=== PATIENT | female | born 1975 | race Caucasian/White ===

== ENCOUNTER 2019-05-09 08:00 | Inpatient (IN) ==
[2019-05-09] MEDS ORDERED: Lidocaine 1% 20 ML MDV ID PRN (08:33)
[2019-05-09] MEDS ORDERED: Naloxone 0.4 MG/ML INJ IVP PRN ×2 (08:33→16:55)
[2019-05-09] MEDS ORDERED: Famotidine 20 MG/2 ML VIAL IVP PRN (08:33)
[2019-05-09] MEDS ORDERED: Metoclopramide 10 MG/2 ML VIAL IVP PRN ×2 (08:33→16:55)
[2019-05-09] MEDS ORDERED: Ondansetron 4 MG/2 ML VIAL IVP PRN ×2 (08:33→16:55)
[2019-05-09] MEDS ORDERED: *HR* Nalbuphine 10 MG/ML AMPUL IVP PRN (08:33)
[2019-05-09] MEDS ORDERED: FLU Vac QV 19-20 (6Month+)/PF 0.5 ML SYRINGE IM ONE (08:41)
[2019-05-09 08:44] LABS: Basophils # 0.1 K/mcL (0.0-0.2); Basophils % 0.4 %; Eosinophils # 0.4 K/mcL (0.0-0.6); Eosinophils % 2.8 %; Hematocrit 36.2 % (35.3-44.9); Hemoglobin 12.7 g/dL (11.5-15.4); Immature Granulocytes % 0.4 % (0-4); Lymphocytes # 2.5 K/mcL (0.6-4.6); Lymphocytes % 18.5 %; Mean Corpuscular HGB Conc 35.1 g/dL (31.6-35.5); Mean Corpuscular Volume 88.3 fL (83.0-100.0); Monocytes # 0.9 K/mcL (0.0-1.3); Monocytes % 6.7 %; Neutrophils # 9.7 K/mcL (1.6-8.9); Platelet Count 404 K/mcL (140-400); Red Cell Distribution Width 13.2 % (11.5-14.5); Segmented Neutrophils % 71.2 %; White Blood Count 13.7 K/mcL (4.3-11.1)
[2019-05-09 08:54] LABS: Amphetamine Screen,Urine Negative ng/mL (Cutoff=1000); Barbiturate Screen,Urine Negative ng/mL (Cutoff=200); Benzodiazepines Screen,Urine Negative ng/mL (Cutoff=200); Cannabinoid Screen,Urine Negative ng/mL (Cutoff = 50); Cocaine Screen,Urine Negative ng/mL (Cutoff= 300); Opiate Screen,Urine Negative ng/mL (Cutoff=300); Phencyclidine Screen,Urine Negative ng/mL (Cutoff=25)
[2019-05-09] MEDS ORDERED: Oxytocin 20 units/ LR 1000 mL 20 UNIT/1,000 ML BAG IVC SCH ×2 (09:45→16:55)
[2019-05-09] MEDS ORDERED: Acetaminophen IV 1,000 MG/100 ML INFUS..BTL IVPB ONE (10:24)
[2019-05-09] MEDS ORDERED: *HR* Promethazine 25 MG/ML VIAL IVP PRN (10:24)
[2019-05-09] MEDS ORDERED: Ondansetron 4 MG/2 ML VIAL ONE (10:40)
[2019-05-09] MEDS ORDERED: Dexamethasone 4 MG/ML VIAL ONE (10:40)
[2019-05-09] MEDS ORDERED: *HR* Phenylephrine 10 MG/ML VIAL ONE (10:41)
[2019-05-09] MEDS ORDERED: *HR* Oxytocin 10 UNIT/ML VIAL IM ONE (10:41)
[2019-05-09] MEDS ORDERED: EPHEDrine 50 MG/ML VIAL ONE (10:41)
[2019-05-09] MEDS ORDERED: *HR* Morphine Sulfate/PF 10 MG/10 ML AMPUL ONE (10:42)
[2019-05-09] MEDS ORDERED: *HR* FentaNYL (PF) 100 MCG/2 ML VIAL ONE (10:42)
[2019-05-09] MEDS ORDERED: Ringers Solution, Lactated 1,000 ML ONE (10:44)
[2019-05-09] MEDS ORDERED: *HR* Midazolam HCl 2 MG/2 ML VIAL ONE (10:50)
[2019-05-09] MEDS: Ringers Solution, Lactated 1,000 ML IVC SCH ×2 (11:25→11:29)
[2019-05-09] MEDS ORDERED: Ringers Solution, Lactated 1,000 ML IVC SCH (16:55)
[2019-05-09] MEDS ORDERED: Sennosides 8.6 MG TABLET PO PRN (16:55)
[2019-05-09] MEDS ORDERED: Simethicone 80 MG TAB.CHEW PO PRN (16:55)
[2019-05-09] MEDS ORDERED: *HR* HYDROMORPHONE 2 MG/ML VIAL ONE (17:05)
[2019-05-09] MEDS: *HR* OxyCODONE/APAP 5/325 TABLET PO PRN (17:17)
[2019-05-09] MEDS: *HR* Metformin 500 MG TABLET PO SCH (20:56)
[2019-05-09] MEDS: Ibuprofen 600 MG TABLET PO PRN (20:57)
[2019-05-10 06:40] LABS: Basophils % 0.2 %; Eosinophils # 0.2 K/mcL (0.0-0.6); Eosinophils % 1.1 %; Hematocrit 32.8 % (35.3-44.9); Hemoglobin 11.2 g/dL (11.5-15.4); Immature Granulocytes % 0.5 % (0-4); Lymphocytes % 11.3 %; Mean Corpuscular HGB Conc 34.1 g/dL (31.6-35.5); Mean Corpuscular Hemoglobin 30.4 pg (28.0-33.3); Mean Corpuscular Volume 89.1 fL (83.0-100.0); Mean Platelet Volume 9.7 fL (9.4-12.4); Monocytes # 1.5 K/mcL (0.0-1.3); Monocytes % 8.6 %; Neutrophils # 13.6 K/mcL (1.6-8.9); Platelet Count 347 K/mcL (140-400); Red Blood Count 3.68 M/mcL (3.82-4.97); Red Cell Distribution Width 13.2 % (11.5-14.5); Segmented Neutrophils % 78.3 %; White Blood Count 17.4 K/mcL (4.3-11.1)
[2019-05-10] MEDS: Ibuprofen 600 MG TABLET PO PRN ×2 (06:58→18:47)
[2019-05-10] MEDS: *HR* Metformin 500 MG TABLET PO SCH ×2 (08:58→16:54)
[2019-05-10] MEDS ORDERED: Prenatal Vit/FA 1 EACH TABLET PO SCH (09:00)
[2019-05-10] MEDS: *HR* OxyCODONE/APAP 5/325 TABLET PO PRN (13:12)
[2019-05-10] MEDS ORDERED: FLU Vac QV 19-20 (6Month+)/PF 0.5 ML SYRINGE IM ONE (20:21)
[2019-05-10 21:02] VITALS: BP 130/85
== END 2019-05-10 21:15 | disposition home or self-care (01) | DRG 540 ==
LOC: 1NENULAB 08:04 → 1NENUPED 15:51 → 1NENUOBS 16:28
PROVIDERS: ADMIT Obstetrics & Gynecology; ATTEND Obstetrics & Gynecology

== ENCOUNTER 2019-08-14 17:51 | Observation (INO) ==
[2019-08-14] MEDS ORDERED: 0.9 % Sodium Chloride 1,000 ML IVC ONE ×2 (18:00→21:44)
[2019-08-14 18:21] LABS: Basophils % 0.5 %; Eosinophils # 0.3 K/mcL (0.0-0.6); Eosinophils % 3.7 %; Hematocrit 41.2 % (35.3-44.9); Immature Granulocytes % 0.5 % (0-4); Lymphocytes # 1.2 K/mcL (0.6-4.6); Lymphocytes % 14.6 %; Mean Corpuscular Hemoglobin 29.1 pg (28.0-33.3); Mean Corpuscular Volume 85.7 fL (83.0-100.0); Mean Platelet Volume 9.1 fL (9.4-12.4); Monocytes # 0.7 K/mcL (0.0-1.3); Monocytes % 8.7 %; Neutrophils # 5.8 K/mcL (1.6-8.9); Platelet Count 309 K/mcL (140-400); Red Blood Count 4.81 M/mcL (3.82-4.97); Red Cell Distribution Width 13.5 % (11.5-14.5); White Blood Count 8.1 K/mcL (4.3-11.1)
[2019-08-14 18:30] LABS: Activated Partial Thrombo Time 34.8 Seconds (26.0-36.0)
[2019-08-14 18:37] LABS: Bilirubin,Urine Small (Negative); Blood,Urine Negative (Negative); Clarity,Urine Cloudy (Clear); Color,Urine Dark Yellow (Yellow); Glucose,Urine (UA) Normal (Normal); Ketones,Urine Negative (Negative); Leukocyte Esterase,Urine Negative (Negative); Nitrite,Urine Negative (Negative); Protein,Urine Negative (Neg-Trace); Specific Gravity,Urine 1.019 (1.010-1.025); Urobilinogen,Urine Normal (Normal)
[2019-08-14 18:39] LABS: Bacteria,Urine None Seen per hpf (None-Few); Hyaline Casts,Urine None Seen per lpf (None-Few); RBC,Urine 0-3 per hpf (0-3); Squamous Epithelial Cell,Urine Many per lpf (None-Few); WBC,Urine 0-3 per hpf (0-3)
[2019-08-14 19:01] LABS: Alanine Aminotransferase 521 Units/L (7-52); Albumin 4.3 g/dL (3.5-5.7); Albumin/Globulin Ratio 1.3 (1.1-2.2); Alkaline Phosphatase 174 Units/L (34-104); Amylase 537 Units/L (29-103); Aspartate Amino Transferase 497 Units/L (13-39); BUN/Creatinine Ratio 17 (6-26); Bilirubin,Direct 0.7 mg/dL (0.0-0.2); Bilirubin,Indirect 0.4 mg/dL (0.0-1.0); Bilirubin,Total 1.1 mg/dL (0.3-1.0); Blood Urea Nitrogen 12 mg/dL (6-20); Calcium 9.7 mg/dL (8.6-10.3); Carbon Dioxide 27 mEq/L (23-29); Chloride 102 mEq/L (98-107); Globulin 3.3 g/dL (2.4-3.5); Glucose 145 mg/dL (70-105); Lipase > 1800 Units/L (11-82); Osmolality,Calculated 284 (280-300); Potassium 4.3 mEq/L (3.5-5.1); Sodium 136 mEq/L (136-145); Total Protein 7.6 g/dL (6.4-8.9); Troponin I < 0.03 ng/mL (< 0.04); eGFR For African Americans > 60 (> 60); eGFR For Non-African Americans > 60 (> 60)
[2019-08-14] MEDS ORDERED: *HR* FentaNYL (PF) 100 MCG/2 ML VIAL IVP ONE (20:23)
[2019-08-14] MEDS ORDERED: Isovue-370 500 ML BOTTLE IVP ONE (21:43)
[2019-08-14] MEDS ORDERED: Nicotine 14 MG PATCH.TD24 TD ONE (22:25)
[2019-08-15] MEDS ORDERED: Ondansetron 4 MG/2 ML VIAL IVP PRN (01:47)
[2019-08-15] MEDS ORDERED: Naloxone 0.4 MG/ML INJ IVP PRN (01:47)
[2019-08-15] MEDS ORDERED: Morphine Sulfate 2 MG/ML SYRINGE IVP PRN (01:53)
[2019-08-15] MEDS: 0.9 % Sodium Chloride 1,000 ML IVC SCH ×4 (02:31→20:35)
[2019-08-15] MEDS: Ringers Solution, Lactated 1,000 ML IVC SCH ×4 (04:15→12:57)
[2019-08-15 04:32] LABS: Basophils % 0.8 %; Eosinophils # 0.2 K/mcL (0.0-0.6); Eosinophils % 4.4 %; Hemoglobin 12.5 g/dL (11.5-15.4); Immature Granulocytes % 0.2 % (0-4); Lymphocytes % 19.8 %; Mean Corpuscular HGB Conc 33.8 g/dL (31.6-35.5); Mean Corpuscular Hemoglobin 29.8 pg (28.0-33.3); Mean Corpuscular Volume 88.1 fL (83.0-100.0); Mean Platelet Volume 9.5 fL (9.4-12.4); Monocytes # 0.5 K/mcL (0.0-1.3); Monocytes % 9.7 %; Neutrophils # 3.4 K/mcL (1.6-8.9); Platelet Count 263 K/mcL (140-400); Red Cell Distribution Width 13.6 % (11.5-14.5); Segmented Neutrophils % 65.1 %; White Blood Count 5.3 K/mcL (4.3-11.1)
[2019-08-15 04:33] LABS: Prothrombin Time 11.6 Seconds (9.4-12.1)
[2019-08-15 05:14] LABS: Alanine Aminotransferase 966 Units/L (7-52); Albumin 3.9 g/dL (3.5-5.7); Albumin/Globulin Ratio 1.4 (1.1-2.2); Alkaline Phosphatase 198 Units/L (34-104); Aspartate Amino Transferase 846 Units/L (13-39); BUN/Creatinine Ratio 15 (6-26); Bilirubin,Total 1.6 mg/dL (0.3-1.0); Blood Urea Nitrogen 8 mg/dL (6-20); Calcium 8.9 mg/dL (8.6-10.3); Carbon Dioxide 24 mEq/L (23-29); Chloride 106 mEq/L (98-107); Chol/HDL Ratio 5.2 (0-4.9); Cholesterol 198 mg/dL (< 200); Globulin 2.7 g/dL (2.4-3.5); Glucose 97 mg/dL (70-105); HDL Cholesterol 38 mg/dL (40-59); LDL Cholesterol,Calculated 118 mg/dL (0-99); Magnesium 1.8 mg/dL (1.6-2.6); Osmolality,Calculated 284 (280-300); Potassium 3.8 mEq/L (3.5-5.1); Sodium 138 mEq/L (136-145); Total Protein 6.6 g/dL (6.4-8.9); Triglycerides 209 mg/dL (< 150); eGFR For African Americans > 60 (> 60); eGFR For Non-African Americans > 60 (> 60)
[2019-08-15 05:42] LABS: Hepatitis B Surface Antigen Nonreactive (Nonreactive)
[2019-08-15 06:11] LABS: Hepatitis C Virus Antibody Nonreactive (Nonreactive)
[2019-08-15 06:12] LABS: Hepatitis B Core IgM Nonreactive (Nonreactive)
[2019-08-15 06:13] LABS: Hepatitis A Antibody IgM Nonreactive (Nonreactive)
[2019-08-15] MEDS: *HR* Heparin 5,000 UNIT/ML VIAL SQ SCH ×3 (06:21→21:10)
[2019-08-15] MEDS ORDERED: Piperacillin/Tazobactam 3.375 GM in 0.9 % Sodium Chloride Mini Bag 100 ML IVPB SCH (11:00)
[2019-08-15] MEDS: Piperacillin/Tazobactam 3.375 GM in 0.9 % Sodium Chloride Mini Bag 100 ML IVPB SCH ×2 (11:56→21:10)
[2019-08-15] MEDS ORDERED: 0.9 % Sodium Chloride 1,000 ML IVC SCH (16:15)
[2019-08-15] MEDS ORDERED: Ibuprofen 600 MG TABLET PO ONE (20:49)
[2019-08-15] MEDS ORDERED: Nicotine 14 MG PATCH.TD24 TD SCH (22:30)
[2019-08-16] MEDS: 0.9 % Sodium Chloride 1,000 ML IVC SCH ×4 (00:45→20:19)
[2019-08-16] MEDS: Piperacillin/Tazobactam 3.375 GM in 0.9 % Sodium Chloride Mini Bag 100 ML IVPB SCH ×2 (05:40→20:21)
[2019-08-16] MEDS: *HR* Heparin 5,000 UNIT/ML VIAL SQ SCH ×2 (05:44→21:31)
[2019-08-16 06:11] LABS: Basophils % 0.7 %; Eosinophils # 0.3 K/mcL (0.0-0.6); Eosinophils % 6.5 %; Hematocrit 35.1 % (35.3-44.9); Hematocrit 36.1 % (35.3-44.9); Hemoglobin 11.8 g/dL (11.5-15.4); Hemoglobin 12.1 g/dL (11.5-15.4); Immature Granulocytes % 0.2 % (0-4); Lymphocytes # 1.3 K/mcL (0.6-4.6); Lymphocytes % 31.3 %; Mean Corpuscular HGB Conc 33.5 g/dL (31.6-35.5); Mean Corpuscular HGB Conc 33.6 g/dL (31.6-35.5); Mean Corpuscular Hemoglobin 29.2 pg (28.0-33.3); Mean Corpuscular Hemoglobin 29.6 pg (28.0-33.3); Mean Platelet Volume 9.4 fL (9.4-12.4); Mean Platelet Volume 9.5 fL (9.4-12.4); Monocytes # 0.4 K/mcL (0.0-1.3); Monocytes % 9.6 %; Neutrophils # 2.2 K/mcL (1.6-8.9); Platelet Count 229 K/mcL (140-400); Platelet Count 241 K/mcL (140-400); Red Blood Count 3.99 M/mcL (3.82-4.97); Red Blood Count 4.15 M/mcL (3.82-4.97); Red Cell Distribution Width 13.5 % (11.5-14.5); Red Cell Distribution Width 13.6 % (11.5-14.5); Segmented Neutrophils % 51.7 %; White Blood Count 4.2 K/mcL (4.3-11.1)
[2019-08-16 06:59] LABS: Alanine Aminotransferase 778 Units/L (7-52); Albumin 3.4 g/dL (3.5-5.7); Albumin/Globulin Ratio 1.3 (1.1-2.2); Alkaline Phosphatase 197 Units/L (34-104); Aspartate Amino Transferase 314 Units/L (13-39); BUN/Creatinine Ratio 12 (6-26); Bilirubin,Total 0.7 mg/dL (0.3-1.0); Blood Urea Nitrogen 6 mg/dL (6-20); Calcium 8.2 mg/dL (8.6-10.3); Carbon Dioxide 21 mEq/L (23-29); Chloride 110 mEq/L (98-107); Globulin 2.6 g/dL (2.4-3.5); Glucose 80 mg/dL (70-105); Magnesium 1.6 mg/dL (1.6-2.6); Osmolality,Calculated 287 (280-300); Phosphorous 2.6 mg/dL (2.7-4.5); Potassium 3.6 mEq/L (3.5-5.1); Sodium 140 mEq/L (136-145); eGFR For African Americans > 60 (> 60); eGFR For Non-African Americans > 60 (> 60)
[2019-08-16 07:02] LABS: Amylase 28 Units/L (29-103); Lipase 32 Units/L (11-82)
[2019-08-16] MEDS ORDERED: cefOXitin 1,000 MG, Sodium Chloride IRRigation 1,000 ML IR ONE ×2 (14:00→18:10)
[2019-08-16] MEDS ORDERED: 0.9 % Sodium Chloride 1,000 ML IVC SCH (14:09)
[2019-08-16] MEDS ORDERED: Lidocaine -MPF 2% 2 ML VIAL ONE (14:22)
[2019-08-16] MEDS ORDERED: Ondansetron 4 MG/2 ML VIAL ONE (14:22)
[2019-08-16] MEDS ORDERED: *HR* Rocuronium Bromide 50 MG/5 ML VIAL ONE (14:22)
[2019-08-16] MEDS ORDERED: Ketorolac 30 MG/ML VIAL ONE (14:22)
[2019-08-16] MEDS ORDERED: Dexamethasone 4 MG/ML VIAL ONE (14:22)
[2019-08-16] MEDS ORDERED: Neostigmine Methylsulfate 3 MG/3 ML SYRINGE ONE (14:22)
[2019-08-16] MEDS ORDERED: *HR* Midazolam HCl 2 MG/2 ML VIAL ONE (14:22)
[2019-08-16] MEDS ORDERED: *HR* FentaNYL (PF) 100 MCG/2 ML VIAL ONE (14:22)
[2019-08-16] MEDS ORDERED: Lidocaine HCL 4 ML Topical Solution (Laryng-O-Jet Kit Sterile Pak) TP ONE (14:22)
[2019-08-16] MEDS ORDERED: *HR* Propofol 200 MG/20 ML VIAL IVP ONE (14:22)
[2019-08-16] MEDS ORDERED: *HR* Promethazine 25 MG/ML VIAL IVP PRN ×2 (14:58→18:10)
[2019-08-16] MEDS ORDERED: *HR* Meperidine 25 MG/ML SYRINGE IVP PRN ×2 (14:58→18:10)
[2019-08-16] MEDS ORDERED: *HR* HYDROmorphone (PF) 1 MG/ML SYRINGE IVP PRN ×2 (14:58→18:10)
[2019-08-16] MEDS ORDERED: *HR* OxyCODONE Immed Rel 5 MG TABLET PO PRN (14:58)
[2019-08-16] MEDS ORDERED: Ondansetron 4 MG/2 ML VIAL IVP ONE ×2 (14:58→18:10)
[2019-08-16] MEDS ORDERED: cefOXitin 1,000 MG, 0.9 % Sodium Chloride 1,000 ML IR ONE ×2 (15:00→18:10)
[2019-08-16] MEDS ORDERED: CefOXitin 1,000 MG VIAL ONE (15:28)
[2019-08-16] MEDS ORDERED: Isovue-300 50ML VIAL ONE (16:31)
[2019-08-16] MEDS ORDERED: Naloxone 0.4 MG/ML INJ IVP PRN (18:10)
[2019-08-16] MEDS ORDERED: Ondansetron 4 MG/2 ML VIAL IVP PRN (18:10)
[2019-08-16] MEDS ORDERED: Morphine Sulfate 2 MG/ML SYRINGE IVP PRN (18:10)
[2019-08-16] MEDS ORDERED: Nicotine 14 MG PATCH.TD24 TD SCH (22:30)
[2019-08-17] MEDS: Piperacillin/Tazobactam 3.375 GM in 0.9 % Sodium Chloride Mini Bag 100 ML IVPB SCH (04:33)
[2019-08-17] MEDS: *HR* Heparin 5,000 UNIT/ML VIAL SQ SCH (05:19)
[2019-08-17] MEDS: 0.9 % Sodium Chloride 1,000 ML IVC SCH (06:09)
[2019-08-17 06:52] VITALS: BP 147/85
[2019-08-17 07:35] LABS: Amylase 17 Units/L (29-103); Lipase 13 Units/L (11-82)
[2019-08-17] MEDS ORDERED: *HR* HYDROcodone/Acet 5/325 mg TABLET PO ONE (10:33)
== END 2019-08-17 13:13 | disposition home or self-care (01) ==
LOC: CDU 17:51 → EMEROOARM 17:51 → SUATTDRO 08-15 03:05 → CDU 08-15 03:15 → 3ANU 08-15 16:12
PROVIDERS: ADMIT Internal Medicine; ATTEND Internal Medicine